=== PATIENT | female | born 2000 | race Two or more races ===

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

== ENCOUNTER 2021-01-10 08:00 | Outpatient (CLI) | payer OTHER | END 2021-01-10 08:30 | disposition home or self-care (01) | LOC: PPH VACUNA 08:00 | DX: Z23 Encounter for immunization (principal) ==